=== PATIENT | female | born 1965 | race Caucasian/White ===

== ENCOUNTER 2018-04-12 12:35 | Emergency (ER) | payer OTHER ==
[~2018-04-12] VITALS: Wt 51.5 kg
[2018-04-12] MEDS ORDERED: HYDROmorphONE 1 MG/ML SYG IV STA ×2 (12:58→17:56)
[2018-04-12] MEDS ORDERED: ONDANSETRON 4 MG INJ IV STA ×2 (12:58→17:56)
[2018-04-12] MEDS ORDERED: SOD CHLORIDE 0.9% 1,000 ML IV STA (12:58)
[2018-04-12] MEDS ORDERED: MONT10TA24 PO (13:51)
[2018-04-12] MEDS ORDERED: AMOX1TAB9 PO (13:52)
--- NOTE | 2018-04-12 13:59 | ERD ---
ER Documentation Chief Complaint Chief Complaint ABD PAIN SINCE YESTERDAY LLQ WITH FEVER HPI This is a 52-year-old female who is complaining of left lower quadrant pain with subjective fever onset yesterday. She thinks she feels a mass in her left lower quadrant. No prior abdominal surgery other than an BTL via the umbilicus. De nies any nausea vomiting diarrhea no back pain or hematuria pain is constant dull sometimes worse with walking. Also worse with straining ROS All systems reviewed and are negative except as per history of present illness. Medications Home Meds Reported Medications Amoxicillin/Potassium Clav (Amox-Clav 500-125 mg Tablet) 500-125 mg Tab, 1 TAB PO BID for 20 Days, TAB STARTED 04-08-18 FOR 7 DAYS 04/12/18 Montelukast Sodium* (Montelukast Sodium*) 10 Mg Tablet, 10 MG PO QHS, #30 TAB 04/12/18 Allergies Allergies: Coded Allergies: No Known Allergy (Unverified , 04/12/18) PMhx/Soc History of Surgery: Yes (tubaligation) Anesthesia Reaction: No Hx Neurological Disorder: No Hx Respiratory Disorders: Yes (asthma) Hx Cardiac Disorders: No Hx Psychiatric Problems: No Hx Miscellaneous Medical Probl: No Hx Alcohol Use: No Hx Substance Use: No Hx Tobacco Use: No Smoking Status: Never smoker FmHx Family History: No coronary disease Physical Exam Vitals Vital Signs Date Temp Pulse Resp B/P (MAP) Pulse Ox O2 O2 Flow FiO2 Time Delivery Rate 04/12/18 86 16 113/72 100 Room Air 16:00 (86) 04/12/18 88 18 127/76 96 Room Air 15:49 (93) 04/12/18 99.5 82 18 140/72 100 Room Air 12:52 (94) 04/12/18 99.5 95 18 139/74 100 12:36 (95) Physical Exam Const: Well-developed, well-nourished Head: Atraumatic, normocephalic Eyes: Normal Conjunctiva, PERRLA, EOMI, normal sclera, no nystagmus ENT: Normal External Ears, Nose and Mouth, moist mucus membranes. Neck: Full range of motion. No meningismus, no lymphadenopathy. Resp: Clear to auscultation bilaterally, no wheezing, rhonchi, rales Cardio: Regular rate and rhythm, no murmurs, S1 S2 present Abd: Soft, left lower quadrant tenderness moderate, non distended. Normal bowel sounds, no guarding or rebound, no pulsitile abdominal masses or bruits Skin: No petechiae or rashes, no ecchymosis , no maculopapular rash Back: No midline or flank tenderness Ext: No cyanosis, or edema, FROM x 4, normal inspection, neur ovascularly intact x 4 Neur: Awake and alert, STR 5/5 x 4, sensation intact x 4, no focal find ings, cerebellum intact Psych: Normal Mood and Affect Result Diagram: 04/12/18 1305 04/12/18 1305 Results 24 hrs Laboratory Tests Test 04/12/18 13:05 White Blood Count 10.7 10^3/ul Red Blood Count 4.18 10^6/ul Hemoglobin 9.5 g/dl Hematocrit 31.1 % Mean Corpuscular Volume 74.4 fl Mean Corpuscular Hemoglobin 22.7 pg Mean Corpuscular Hemoglobin Concent 30.5 g/dl Red Cell Distribution Width 15.7 % Platelet Count 375 10^3/UL Mean Platelet Volume 9.6 fl Immature Granulocytes % 0.400 % Neutrophils % 74.0 % Lymphocytes % 14.1 % Monocytes % 10.3 % Eosinophils % 0.8 % Basophils % 0.4 % Nucleated Red Blood Cells % 0.0 /100WBC Immature Granulocytes # 0.040 10^3/ul Neutrophils # 7.9 10^3/ul Lymphocytes # 1.5 10^3/ul Monocytes # 1.1 10^3/ul Eosinophils # 0.1 10^3/ul Basophils # 0.0 10^3/ul Nucleated Red Blood Cells # 0.0 10^3/ul Urine Color YELLOW Urine Clarity SLIGHTLY CLOUDY Urine pH 5.0 Urine Specific [place] 1.021 Urine Ketones NEGATIVE mg/dL Urine Nitrite NEGATIVE mg/dL Urine Bilirubin NEGATIVE mg/dL Urine Urobilinogen NEGATIVE mg/dL Urine Leukocyte Esterase NEGATIVE Mimi/ul Urine Microscopic RBC 0 /HPF Urine Microscopic WBC 0 /HPF Urine Squamous Epithelial Cells FEW /HPF Urine Calcium Oxalate Crystals MODERATE /HPF Urine Mucus FEW /HPF Urine Hemoglobin NEGATIVE mg/dL Urine Glucose NEGATIVE mg/dL Urine Total Protein NEGATIVE mg/dl Sodium Level 140 mmol/L Potassium Level 3.7 mmol/L Chloride Level 105 mmol/L Carbon Dioxide Level 27 mmol/L Anion Gap 8 Blood Urea Nitrogen 9 mg/dl Creatinine 0.60 mg/dl Est Glomerular Filtrat Rate mL/min > 60 mL/min Glucose Level 115 mg/dl Calcium Level 9.6 mg/dl Total Bilirubin 1.2 mg/dl Direct Bilirubin 0.00 mg/dl Indirect Bilirubin 1.2 mg/dl Aspartate Amino Transf (AST/SGOT) 26 IU/L Alanine Aminotransferase (ALT/SGPT) 19 IU/L Alkaline Phosphatase 100 IU/L Total Protein 8.1 g/dl Albumin 4.4 g/dl Globulin 3.70 g/dl Albumin/Globulin Ratio 1.18 Lipase 25 U/L Current Medications Medications Dose Sig/Jazmin Start Time Status Last (Trade) Ordered Route PRN Stop Time Admin Dose Reason Admin Sodium 1,000 ml @ Q1H STAT 04/12/18 DC 04/12/18 Chloride 1,000 mls/hr IV 12:58 13:09 04/12/18 13:57 1 mg ONCE STAT 04/12/18 DC 04/12/18 Hydromorphone IV 12:58 13:10 HCl 04/12/18 13:00 (Dilaudid) Ondansetron 4 mg ONCE STAT 04/12/18 DC 04/12/18 HCl (Zofran IV 12:58 13:10 Inj) 04/12/18 13:00 Iohexol 150 ml STK-MED 04/12/18 DC (Omnipaque ONCE .ROUTE 14:03 300mg/ ml) 04/12/18 14:04 Sodium 100 ml @ ud STK-MED 04/12/18 DC Chloride ONCE .ROUTE 14:03 04/12/18 14:04 Procedures/MDM MR #: [id number] DOS: 04/12/18 1258 Ordering MD: SHARRON HERNANDEZ DO Location: E/R Room/Bed: PROCEDURE: CT abdomen and pelvis with contrast CLINICAL INDICATION: Abdominal pain TECHNIQUE: Continues 2.5 mm axial images were obtained from the domes of the diaphragms to the inferior pubic rami following intravenous injection of 90 cc of Isovue 300. The calculated dose length product (DLP) = 428.02 mGy-cm. Exam CTDlvol = 8.83 mGy. One or more of the following dose reduction techniques were used: Automated exposure control, adjustment of the mA and or KV according to p atient size, or use of iterative reconstruction technique. DICOM images are available. COMPARISON: None. FINDINGS: The lung bases are clear. No pleural pericardial fluid is seen. Liver, gallbladder, pancreas, spleen, adrenals, and kidneys are within normal limits. There is no obstructive uropathy. Aorta is normal in caliber without aneurysmal dilatation or dissection. No pathologically enlarged mesenteric lymph nodes are seen. Stomach and small bowel loops are within normal limits. No small bowel dilatation or obstruction is identified. No free fluid, free air, abscess is seen in the upper abdomen CT pelvis: Images through the pelvis demonstrate physiologic free fluid. No abscess or free air seen. Uterus is enlarged. There is a 6.4 x 6.9 cm necrotic mass in the fundus of the uterus likely representing a degenerated fibroid. There is a questionable second 3.6 cm exophytic left lower uterine segment fibroid versus ovarian cyst. Right adnexa is grossly unremarkable. Bladder is partially distended but within normal limits. Evaluation of the colon demonstrates no diverticulosis, diverticulitis or acute colitis. There is moderate constipation. Normal appendix and terminal ileum are identified. There are no pathologically enlarged iliac chain lymph nodes. No destructive bony lesions are seen. IMPRESSION: 1. Enlarged uterus with 6.9 x 6.4 cm necrotic fundal mass likely representing a degenerated fibroid. Correlation with ultrasound or MRI is recommended 2. Questionable second 3.6 cm exophytic fibroid versus left adnexal cyst. Consider further evaluation with ultrasound. 3. Physiologic free fluid in the pelvis. No abscess or free air. 4. Moderate constipation. 5. Normal appendix and terminal ileum RPTAT: .Abram Delgadillo MD, MD Date Time Electronically viewed and signed by .Abram Delgadillo MD, on 04/12/2018 14:58 .W/ CC: SHARRON HERNANDEZ DO [id number] Discussed the CT scan findings with the [employer]ATOR on-call. She said it is safe to send the patient home with follow-up with her OB GEN and his pain control. I did relay this information to the patient. We will discharge home with pain meds and follow-up Patient feels much better at this time, and vital signs are normal, symptoms have improved. I did give strict instructions to return to the ED if symptoms continue or worsen, patient will otherwise follow-up with primary care physician. Patient understood instructions and agreed to plan. Disclaimer: Inadvertent spelling and grammatical errors are likely due to EHR/dictation software use and do not reflect on the overall quality of patient care. Also, please note that the electronic time recorded on this note does not necessarily reflect the actual time of the patient encounter. Departure Diagnosis: Primary Impression: Uterine fibroid Uterine leiomyoma location: intramural Qualified Codes: D25.1 - Intramural leiomyoma of uterus Condition: Stable SHARRON HERNANDEZ DO Apr 12, 2018 13:59
[2018-04-12] MEDS ORDERED: SOD CHLORIDE 0.9% 100 ML ONE (14:03)
[2018-04-12] MEDS ORDERED: IOHEXOL 300MG/ML 150 ML BTL ONE (14:03)
[2018-04-12] MEDS ORDERED: IBUP800T48 PO (17:57)
[2018-04-12] MEDS ORDERED: HYDR-3980 PO (17:57)
[2018-04-12 19:15] VITALS: BP 119/69; PULSE 85; RESP 16
== END 2018-04-12 19:27 | disposition home or self-care (01) ==
LOC: E/R 12:35
DX: D25.1 Intramural leiomyoma of uterus (principal); J45.909 Unspecified asthma, uncomplicated
CPT/HCPCS: 36415; 74177; 80053; 81001; 83690; 85025; 96361; 96374; 96375; 96376; J1170; J2405; J7030; Q9967; Z7502; Z7610; 81003